=== PATIENT | male | born 1970 | race Caucasian/White ===

== ENCOUNTER 2017-06-30 14:06 | Inpatient (IN) | payer MEDICARE ==
[~2017-06-30] VITALS: Ht 172.7 cm; Wt 96.3 kg
[2017-06-30 15:30] VITALS: BP 137/83
[2017-06-30] MEDS ORDERED: GEODON60 MG PO (15:59)
[2017-06-30] MEDS ORDERED: COGENTIN0.5 MG PO (16:00)
[2017-06-30] MEDS ORDERED: METFORMIN1000 MG PO (16:01)
[2017-06-30] MEDS ORDERED: NEURONTIN400 MG PO (16:02)
[2017-06-30] MEDS ORDERED: TRILEPTAL300 MG PO (16:02)
[2017-06-30] MEDS ORDERED: ZESTRIL10 MG PO (16:02)
[2017-06-30 16:48] LABS: BASO % 0.5 % (0.0-1.0); EOS # 0.2 10*3/uL (0.0-0.4); EOS % 1.8 % (1.0-4.0); HEMATOCRIT 41.1 % (42.0-52.0); HEMOGLOBIN 14.2 g/dl (14.0-18.0); LYMPH # 2.7 10*3/uL (1.3-4.4); LYMPH % 32.5 % (27.0-41.0); MEAN CELL VOLUME 87.1 fl (80.0-94.0); MEAN CORPUSCULAR HGB 30.1 pg (27.0-31.0); MEAN CORPUSCULAR HGB CONC 34.5 g/dl (33.0-37.0); MONO # 0.6 10*3/uL (0.1-1.0); MONO % 7.6 % (3.0-9.0); NEUT # 4.8 10*3/uL (2.3-7.9); NEUT % 57.2 % (47.0-73.0); PLATELET COUNT AUTOMATED 174 10*3/uL (130-400); RED BLOOD COUNT 4.72 10*6/uL (4.50-5.90); RED CELL DISTRI WIDTH 13.3 % (0-14.5); WHITE BLOOD COUNT 8.3 10*3/uL (4.8-10.8)
[2017-06-30 17:01] LABS: INTERNATIONAL NORM RATIO 1.1 (2.0-3.5)
[2017-06-30 17:10] LABS: ALBUMIN 3.5 gm/dl (3.1-4.5); ALKALINE PHOSPHATASE 103 U/L (45-117); BUN 11 mg/dl (7-24); CHLORIDE 103 mmol/L (98-107); CREATININE 0.87 mg/dL (0.70-1.30); POTASSIUM 3.9 mmol/L (3.5-5.1); SGOT/AST 34 IU/L (3-35); SGPT/ALT 36 U/L (12-78); SODIUM 138 mmol/L (136-145); TOTAL PROTEIN 8.1 gm/dL (6.4-8.2)
[2017-06-30 17:11] LABS: ETHYL ALCOHOL < 3.0 mg/dl (<3)
[2017-06-30 17:17] LABS: BILIRUBIN NEGATIVE (NEGATIVE); BLOOD NEGATIVE (NEGATIVE); CLARITY CLEAR (CLEAR); COLOR YELLOW (YELLOW); GLUCOSE NEGATIVE (NEGATIVE); KETONE NEGATIVE (NEGATIVE); LEUKO ESTERASE NEGATIVE (NEGATIVE); NITRITE NEGATIVE (NEGATIVE); SPECIFIC GRAVITY >= 1.030 (1.005-1.030)
[2017-06-30 17:26] LABS: URINE AMPHETAMINES < 1000 (1000ng/ml); URINE BARBITURATES < 200 (200ng/ml); URINE BENZODIAZEPINES < 200 (200ng/ml); URINE CANNABINOIDS (THC) > 50 (50ng/ml); URINE COCAINE > 300 (300ng/ml); URINE METHADONE < 300 (300ng/ml); URINE OPIATES > 300 (300ng/ml)
[2017-06-30 17:34] LABS: URINE PHENCYCLIDINE < 25 (25ng/ml)
[2017-06-30 17:41] LABS: BACTERIA TRACE
[2017-07-01 00:07] VITALS: BP 124/89
[2017-07-01 08:00] VITALS: BP 130/84
[2017-07-01 12:00] VITALS: BP 121/68
[2017-07-01 16:00] VITALS: BP 132/87
[2017-07-01 20:00] VITALS: BP 129/74
[2017-07-02 05:53] LABS: BASO % 0.4 % (0.0-1.0); EOS # 0.2 10*3/uL (0.0-0.4); EOS % 2.2 % (1.0-4.0); HEMOGLOBIN 14.4 g/dl (14.0-18.0); LYMPH # 2.8 10*3/uL (1.3-4.4); LYMPH % 40.7 % (27.0-41.0); MEAN CELL VOLUME 88.3 fl (80.0-94.0); MEAN CORPUSCULAR HGB 29.6 pg (27.0-31.0); MEAN CORPUSCULAR HGB CONC 33.5 g/dl (33.0-37.0); MEAN PLATELET VOLUME 10.6 fl (9.6-12.3); MONO # 0.5 10*3/uL (0.1-1.0); MONO % 7.8 % (3.0-9.0); NEUT # 3.4 10*3/uL (2.3-7.9); NEUT % 48.5 % (47.0-73.0); PLATELET COUNT AUTOMATED 180 10*3/uL (130-400); RED BLOOD COUNT 4.87 10*6/uL (4.50-5.90); RED CELL DISTRI WIDTH 13.4 % (0-14.5)
[2017-07-02 08:00] VITALS: BP 123/95
[2017-07-02 16:00] VITALS: BP 127/84
== END 2017-07-02 19:25 | disposition left against medical advice (07) | DRG 894 ==
LOC: 4E 14:06
PROVIDERS: Internal Medicine
DX: F11.23 Opioid dependence with withdrawal (principal); E11.42 Type 2 diabetes mellitus with diabetic polyneuropathy; F12.10 Cannabis abuse, uncomplicated; F14.10 Cocaine abuse, uncomplicated; F31.9 Bipolar disorder, unspecified; B19.20 Unspecified viral hepatitis C without hepatic coma; F19.10 Other psychoactive substance abuse, uncomplicated; Z53.21 Procedure and treatment not carried out due to patient leaving prior to being seen by health care provider; F17.210 Nicotine dependence, cigarettes, uncomplicated; Z86.14 Personal history of Methicillin resistant Staphylococcus aureus infection; Z89.511 Acquired absence of right leg below knee; Z82.61 Family history of arthritis; Z80.8 Family history of malignant neoplasm of other organs or systems; Z79.899 Other long term (current) drug therapy; Z91.030 Bee allergy status; Z88.0 Allergy status to penicillin

== ENCOUNTER 2017-11-01 15:00 | Inpatient (IN) | payer MEDICARE ==
[~2017-11-01] VITALS: Ht 175.2 cm; Wt 92.6 kg
[~2017-11-01 15:00] MED LIST: COGENTIN0.5 MG PO; GEODON60 MG PO; GLUCOPHAGE500 M1 PO; NEURONTIN400 MG PO; TRILEPTAL300 MG PO; ZESTRIL10 MG PO
[2017-11-01 16:00] VITALS: BP 141/88
[2017-11-01 16:10] VITALS: BP 141/88
[2017-11-01 17:15] LABS: BASO % 0.5 % (0.0-1.0); EOS # 0.2 10*3/uL (0.0-0.4); EOS % 1.9 % (1.0-4.0); HEMATOCRIT 42.4 % (42.0-52.0); HEMOGLOBIN 14.6 g/dl (14.0-18.0); LYMPH # 2.5 10*3/uL (1.3-4.4); MEAN CELL VOLUME 88.7 fl (80.0-94.0); MEAN CORPUSCULAR HGB 30.5 pg (27.0-31.0); MEAN CORPUSCULAR HGB CONC 34.4 g/dl (33.0-37.0); MEAN PLATELET VOLUME 10.4 fl (9.6-12.3); MONO # 0.7 10*3/uL (0.1-1.0); MONO % 7.8 % (3.0-9.0); NEUT # 5.3 10*3/uL (2.3-7.9); NEUT % 60.5 % (47.0-73.0); PLATELET COUNT AUTOMATED 222 10*3/uL (130-400); RED BLOOD COUNT 4.78 10*6/uL (4.50-5.90); RED CELL DISTRI WIDTH 13.2 % (0-14.5); WHITE BLOOD COUNT 8.8 10*3/uL (4.8-10.8)
[2017-11-01 17:23] LABS: INTERNATIONAL NORM RATIO 1.1 (2.0-3.5)
[2017-11-01 17:24] LABS: BILIRUBIN NEGATIVE (NEGATIVE); BLOOD NEGATIVE (NEGATIVE); CLARITY CLEAR (CLEAR); COLOR YELLOW (YELLOW); GLUCOSE NEGATIVE (NEGATIVE); KETONE NEGATIVE (NEGATIVE); LEUKO ESTERASE NEGATIVE (NEGATIVE); NITRITE NEGATIVE (NEGATIVE); PH 5.5 (5.0-9.0); SPECIFIC GRAVITY >= 1.030 (1.005-1.030)
[2017-11-01 17:26] LABS: ALBUMIN 3.9 gm/dl (3.1-4.5); ALKALINE PHOSPHATASE 107 U/L (45-117); BUN 13 mg/dl (7-24); CHLORIDE 100 mmol/L (98-107); CREATININE 0.81 mg/dL (0.70-1.30); POTASSIUM 4.1 mmol/L (3.5-5.1); SGOT/AST 38 IU/L (3-35); SGPT/ALT 44 U/L (12-78); SODIUM 137 mmol/L (136-145); TOTAL PROTEIN 8.4 gm/dL (6.4-8.2)
[2017-11-01 17:29] LABS: ETHYL ALCOHOL < 3.0 mg/dl (<3)
[2017-11-01 17:37] LABS: BACTERIA 1+; EPITHELIAL CELLS 0-2; MUCOUS 1+; RBC 0-2 rbc/hpf (0-2)
[2017-11-01 17:46] LABS: URINE AMPHETAMINES < 1000 (1000ng/ml); URINE BARBITURATES < 200 (200ng/ml); URINE BENZODIAZEPINES < 200 (200ng/ml); URINE CANNABINOIDS (THC) < 50 (50ng/ml); URINE COCAINE > 300 (300ng/ml); URINE METHADONE < 300 (300ng/ml); URINE OPIATES > 300 (300ng/ml)
[2017-11-01 17:47] LABS: URINE PHENCYCLIDINE < 25 (25ng/ml)
[2017-11-02] VITALS: BP 120/71
[2017-11-02 08:00] VITALS: BP 124/76
[2017-11-02 16:00] VITALS: BP 124/87
[2017-11-02 20:00] VITALS: BP 115/68
[2017-11-03] VITALS: BP 120/74
[2017-11-03 08:00] VITALS: BP 120/66
[2017-11-03 16:00] VITALS: BP 133/87
[2017-11-03 20:00] VITALS: BP 124/72
[2017-11-04 06:30] LABS: BASO % 0.6 % (0.0-1.0); EOS # 0.2 10*3/uL (0.0-0.4); EOS % 2.7 % (1.0-4.0); HEMATOCRIT 42.5 % (42.0-52.0); HEMOGLOBIN 14.2 g/dl (14.0-18.0); LYMPH # 2.4 10*3/uL (1.3-4.4); LYMPH % 37.4 % (27.0-41.0); MEAN CELL VOLUME 90.4 fl (80.0-94.0); MEAN CORPUSCULAR HGB 30.2 pg (27.0-31.0); MEAN CORPUSCULAR HGB CONC 33.4 g/dl (33.0-37.0); MEAN PLATELET VOLUME 10.7 fl (9.6-12.3); MONO # 0.5 10*3/uL (0.1-1.0); MONO % 7.1 % (3.0-9.0); NEUT # 3.3 10*3/uL (2.3-7.9); NEUT % 51.7 % (47.0-73.0); PLATELET COUNT AUTOMATED 187 10*3/uL (130-400); RED CELL DISTRI WIDTH 13.1 % (0-14.5); WHITE BLOOD COUNT 6.3 10*3/uL (4.8-10.8)
[2017-11-04 07:05] LABS: CREATININE 0.95 mg/dL (0.70-1.30)
[2017-11-04 08:00] VITALS: BP 124/78
[2017-11-04] MEDS ORDERED: ROPINIROLE HYD0.5 MG PO (11:55)
== END 2017-11-04 13:00 | disposition home or self-care (01) | DRG 392 ==
LOC: 5E 15:00
PROVIDERS: Internal Medicine
DX: R11.0 Nausea (principal); E11.40 Type 2 diabetes mellitus with diabetic neuropathy, unspecified; F11.23 Opioid dependence with withdrawal; B19.20 Unspecified viral hepatitis C without hepatic coma; F14.10 Cocaine abuse, uncomplicated; F31.9 Bipolar disorder, unspecified; Z72.0 Tobacco use; Z71.6 Tobacco abuse counseling; Z89.519 Acquired absence of unspecified leg below knee; Z82.61 Family history of arthritis; Z80.8 Family history of malignant neoplasm of other organs or systems; Z88.0 Allergy status to penicillin; Z79.899 Other long term (current) drug therapy; Z91.030 Bee allergy status